=== PATIENT | male | born 1970 | race Caucasian/White ===

== ENCOUNTER 2017-02-11 02:58 | Emergency (ER) | payer BC ==
[~2017-02-11] VITALS: Ht 170.2 cm; Wt 72.2 kg
[~2017-02-11 02:58] MED LIST: BUPR8MIS SL
[2017-02-11 03:07] VITALS: TEMP 36.7; Ht 170.2 cm; Wt 72.2 kg
[2017-02-11] MEDS ORDERED: SODIUM CHLORIDE 0.9% 1000ML 1,000 ML IV STA (03:11)
[2017-02-11 03:13] VITALS: O2SAT 96
--- NOTE | 2017-02-11 03:28 | EMERGENCY ROOM VISIT NOTE ---
History First contact with patient: 03:02 Chief Complaint: UNRESPONSIVE Stated Complaint: UNRESPONSIVE EPISODE Nursing Triage Summary: Patient reports taking fentanyl that he got off of the street. Patient was found on the couch by his "snoring loudly". Patient was noted to have agonal respirations, oxygen was less than 50% for EMS, oral airway was inserted and patient was ventilated with BVM. Patient given 2 mg of narcan intranasal afterwards and awoke. Currently CAOx4. History of Present Illness The patient is a 46 year old male who presents to the Emergency Room with complaints of fentanyl overdose. Patient states he snorted fentanyl tonight to get high. Patient states he bought this off the street. Patient states he finished rehabilitation for heroin abuse. Patient states he does not want anyone to know about his problems. Patient denies suicidal or homicidal ideations, chest pain, dyspnea, fever, chills, cough, congestion, abdominal pain , headache or any other medical complaints. Patient is demanding to leave. Review of Systems See HPI for pertinent positives & negatives. A total of 10 systems reviewed and were otherwise negative. Past Medical/Surgical History none Family History Cancer Kidney disease Social History Smoking Status: Current Every Day Smoker Drug Use: heroin, other (fentanyl) Marital Status: Housing Status: lives with family Occupation Status: employed Current/Historical Medications Scheduled Buprenorphine Hcl-Naloxone Hcl (Suboxone 8-2 Mg), 2 DOSE SL now Allergies Coded Allergies: No Known Allergies (Unverified , 10/05/15) Physical Exam Vital Signs Date Time Temp Pulse Resp B/P Pulse Ox O2 Delivery O2 Flow Rate FiO2 02/11/17 03:07 36.7 105 20 131/92 96 Room Air 02/11/17 03:04 98 Physical Exam VITALS: Vitals are noted on the nurse's note and reviewed by myself. Vital signs stable. GENERAL: White male answering questions appropriately, in no acute distress, nondiaphoretic, well-developed well-nourished. SKIN: The skin was without rashes, erythema, edema, or bruising. There is no tenting of the skin. Capillary reflex less than 2 seconds. HEAD: Normocephalic atraumatic. EARS: External auditory canals clear, tympanic membranes pearly foster without erythema or effusion bilaterally. EYES: Pupils equal round and reactive to light and accommodation. Conjunctivae without injection, sclerae without icterus. Extraocular movements intact. NOSE: Patent, turbinates without inflammation or discharge. No sinus tenderness. MOUTH: Mucous membranes moist. Tonsils are not enlarged. Pharynx without erythema or exudate. Uvula midline. Airway patent. Tongue does not deviate. NECK: Supple without nuchal rigidity. No lymphadenopathy. No thyromegaly. Cervical spine is nontender. No JVD. HEART: Regular rate and rhythm without murmurs gallops or rubs. LUNGS: Clear to auscultation bilaterally without wheezes, rales or rhonchi. No dullness to percussion. No retractions or accessory muscle use. ABDOMEN: Positive bowel sounds x 4. Normal tympanic percussion. Soft, nontender, without masses or organomegaly. [place] sign negative. No guarding or rebound tenderness. MUSCULOSKELETAL: No muscle atrophy, erythema, or edema noted. NEURO: Patient was alert and oriented to person place and time. Normal sensation to light and sharp touch. No focal neurological deficits. Medical Decision & Procedures Laboratory Results Test 02/11/17 03:11 ED Course Prior records/ancillary studies reviewed. Triage Nursing notes reviewed. Additional history obtained from EMS The patient's history was concerning for altered mental status and probable overdose. Differential diagnosis: Etiologies such as toxicologic, infection, hypoglycemia, electrolyte abnormalities, cardiac sources, intracerebral event, neurologic, as well as others were entertained. Physical examination: The patient had normal sensorium. No trauma noted. ER treatment provided: By mouth fluids On reassessment the patient was stable and improving. Diagnostic interpretation by me: The electrocardiogram was negative for pathologic change. There was no QRS widening or interval prolongation. Normal sinus, normal intervals, no acute ST- T wave changes. rate of 102. Impression sinus tachycardia interpreted by myself Patient refused laboratory workup or diagnostic testing This appears to be consistent with an isolated overdose of fentanyl. Patient is refusing workup and is demanding to leave. His is with him and is willing to care for him. He was offered rehabilitation information and declined. He is strongly encouraged to avoid illegal drugs in the future. Patient was advised to return to the ER for further workup, chest pain, overdose , fevers, headache, abdominal pain or any other medical complaints. Patient was neurovascularly and neurologically intact. No deficits on exam. He did not have acute abdomen on exam. Stable vital signs. By the evaluation outlined above emergent etiologies such as infection, hypoglycemia, electrolyte abnormalities, cardiac sources, intracerebral event, neurologic,as well as others were deemed relatively unlikely. The pt informed about the findings as listed above. All questions were answered and pleased with the treatment. Return instructions were outlined and the patient was discharged in stable condition. Referral: The patient was referred back to their primary care physician for follow-up in 2 to 3 days for a recheck of the current condition. Medical Decision As above Impression Primary Impression: Narcotic overdose Departure Information Dispostion Home / Self-Care Condition GOOD Referrals No Doctor, Assigned (PCP) Patient Instructions [facility] Additional Instructions Recommend no illegal drug use. Ibuprofen(Motrin, Advil) may be used for fever or pain. Use 600mg every six hours as needed. Take with food. Avoid using more than 2400mg in a 24 hour period. Do not use 2400mg per day for more than three consecutive days without physician direction. Prolonged inappropriate use can lead to stomach upset or ulcers. (AND/OR) Acetaminophen(Tylenol) may be used for fever or pain. Use 1000mg every six hours as needed. Avoid using more than 3000mg in a 24 hour period. Rest and drink plenty of fluids as tolerated. Continue current medications. Return to the ER immediately for overdose, abdominal pain, vomiting, fevers, chest pains, difficulty breathing, worsening of your condition, or as needed. Follow up with your primary physician in 2-3 days for a recheck of your current condition. Problem Qualifiers Primary Impression: Narcotic overdose Encounter type: initial encounter Injury intent: accidental or unintentional Qualified Codes: T40.601A - Poisoning by unspecified narcotics, accidental (unintentional), initial encounter
[2017-02-11 03:31] VITALS: BP 128/89; PULSE 89; O2SAT 98
== END 2017-02-11 03:35 | disposition home or self-care (01) ==
LOC: EDBD 02:58 → C.EDA 02:59
DX: T40.4X1A Poisoning by other synthetic narcotics, accidental (unintentional), initial encounter (principal); X58.XXXA Exposure to other specified factors, initial encounter; F17.210 Nicotine dependence, cigarettes, uncomplicated; Z80.9 Family history of malignant neoplasm, unspecified; Z84.1 Family history of disorders of kidney and ureter; Z79.899 Other long term (current) drug therapy